=== PATIENT | male | born 1995 | race Caucasian/White ===

== ENCOUNTER 2016-05-10 14:32 | Emergency (ER) | payer MEDICAID, OTHER ==
[~2016-05-10] VITALS: Ht 165.1 cm; Wt 81.0 kg
[~2016-05-10 14:32] MED LIST: ACET500C5 PO; AZIT250T94 PO; GUAI118L94 PO; IBUP-1542 PO; SODI44SP11 NS
[2016-05-10 14:51] VITALS: Ht 165.1 cm; Wt 81.0 kg
--- NOTE | 2016-05-10 15:34 | ERD ---
ER Documentation Chief Complaint Date/Time DATE: 05/10/16 TIME: 15:30 Chief Complaint COUGH & SORE THROAT X3 WEEKS HPI This 20-year-old male who presents to the emergency department today complaining of cough and sore throat for the past 3 weeks. Patient has not tried any [id number]-gcxyftj medication. States the cough is worse at night. Denies any fevers or chills. ROS All systems reviewed and are negative except as per history of present illness. Medications Home Meds Active Scripts Acetaminophen* (Tylophen*) 500 Mg Capsule, 1 CAP PO Q6H Y for PAIN AND OR ELEVATED TEMP, #20 CAP Prov:JHOAN LOPEZ PA-C 03/06/16 Ibuprofen* (Motrin*) 600 Mg Tab, 600 MG PO Q6, #30 TAB Prov:JHOAN LOPEZ PA-C 03/06/16 Azithromycin* (Zithromax*) 250 Mg Tablet, 250 MG PO .ZPACK DIRECTED, #6 TAB TAKE 500 MG (2 TABS) THE FIRST DAY THEN 250 MG (1 TAB) DAYS 2-5 Prov:JHOAN LOPEZ PA-C 03/06/16 Guaifenesin-Codeine Phosphate* (Guaifenesin* with Codeine Liq) 120 Ml Liquid, 5 ML PO Q4H for COUGH, #120 ML Prov:CHAYO DEAL NP 03/25/15 Sodium Chloride (Saline Nasal [place]) 45 Ml [place], 2 SPRAY NS Q2H, #1 BOT Prov:CHAYO DEAL NP 03/25/15 Allergies Allergies: Coded Allergies: Penicillins (Verified Allergy, Mild, RASH, 05/13/13) PMhx/Soc History of Surgery: No Anesthesia Reaction: No Hx Neurological Disorder: No Hx Respiratory Disorders: No Hx Cardiac Disorders: No Hx Psychiatric Problems: No Hx Miscellaneous Medical Probl: No Hx Alcohol Use: No Hx Substance Use: No Hx Tobacco Use: No Physical Exam Vitals Vital Signs Date Time Temp Pulse Resp B/P Pulse Ox O2 Delivery O2 Flow Rate FiO2 05/10/16 14:51 97.7 79 18 154/82 100 Physical Exam Const: No acute distress Head: Atraumatic Eyes: Normal Conjunctiva ENT: Ears TMs normal. Nose no drainage. Throat no erythema no exudate. Neck: Full range of motion..~ No meningismus. Resp: Clear to auscultation bilaterally. No Absent breath sounds. No wheezing. Cardio: Regular rate and rhythm, no murmurs Abd: Soft, non tender, non distended. Normal bowel sounds Skin: No petechiae or rashes Neur: Awake and alert Psych: Normal Mood and Affect Procedures/MDM This is a 20-year-old male who presents to the emergency department today complaining of cough and sore throat for the past 3 weeks. Patient's physical exam is benign and symptoms are consistent with URI versus allergic rhinitis. I have low suspicion for strep pharyngitis, peritonsillar abscess, retropharyngeal abscess, otitis media, PNA, sinusitis, abscess, meningitis, sepsis, or other acute infectious bacterial process. Patient is afebrile and otherwise well appearing. Patient has not tried any over -the-counter medications and was therefore instructed to try over the counter medications first. He is given a prescription for Zyrtec, Motrin, Tylenol and Robitussin. His blood pressure was mildly elevated and he was instructed to follow up with his primary care physician I was suspicion for hypertensive emergency At this time the patient is stable for discharge and outpatient management. They should follow up with their PCP in the next 1-2. They may return to the emergency department sooner if symptoms persist or worsen. Patient understood and agreed with the plan. Departure Diagnosis: Primary Impression: URI (upper respiratory infection) URI type: unspecified URI Qualified Code: J06.9 - Upper respiratory tract infection, unspecified type Condition: ZACKARY Melara PA-C May 10, 2016 15:34
== END 2016-05-10 15:41 | disposition home or self-care (01) ==
LOC: FTE 14:32
DX: J06.9 Acute upper respiratory infection, unspecified (principal)
CPT/HCPCS: 99282

== ENCOUNTER 2016-05-17 19:45 | Emergency (ER) | payer OTHER ==
[~2016-05-17] VITALS: Ht 167.6 cm; Wt 79.0 kg
[2016-05-17 20:15] VITALS: Ht 167.6 cm; Wt 79.0 kg
[2016-05-17] MEDS ORDERED: SOD CHLORIDE 0.9% 1,000 ML IV STA (20:46)
[2016-05-17] MEDS ORDERED: LORAZEPAM 2 MG INJ IV ONE (21:00)
--- NOTE | 2016-05-17 21:18 | RADRPT ---
PROCEDURE: XR Chest AP portable CLINICAL INDICATION: Dizziness TECHNIQUE: An AP portable radiograph of the chest was submitted. COMPARISON: 05/13/2013 FINDINGS: Support Hardware: None Cardiovascular: The cardiovascular silhouette appears unremarkable. Lung King: The lung king appear clear with no nodule, alveolar infiltrate, for a interstitial pr ominence evident. Pleural Spaces: No pneumothorax or pleural effusion is identified. Osseous Structures: The osseous structures appear intact. Soft Tissues: The soft tissues appear unremarkable. IMPRESSION: Stable and unremarkable portable chest. Physician Jaida Date Time Electronically viewed and signed by Artur Rosario Physician on 05/17/2016 21:17 /
[2016-05-17 21:23] LABS: ALBUMIN 5.2 g/dl (3.3-4.9)
[2016-05-17 21:24] LABS: POTASSIUM 4.2 mmol/L (3.5-5.1)
[2016-05-17 21:26] LABS: ALBUMIN/GLOBULIN RATIO 1.44; BILIRUBIN,INDIRECT 0.4 mg/dl (0-1.1); BILIRUBIN,TOTAL 0.4 mg/dl (0.2-1.3); CREATININE 0.79 mg/dl (0.61-1.24); TOTAL PROTEIN 8.8 g/dl (6.1-8.1)
[2016-05-17 21:27] LABS: CALCIUM 9.7 mg/dl (8.4-10.2)
[2016-05-17 21:30] LABS: BASOPHILS % 0.5 % (0.0-2.0); EOSINOPHILS % 0.4 % (0.0-7.0); HEMATOCRIT 46.2 % (42.0-52.0); HEMOGLOBIN 16.3 g/dl (14.0-18.0); LYMPHOCYTES % 21.2 % (15.0-51.0); MEAN CORPUSCULAR HEMOGLOBIN 29.3 pg (29.0-33.0); MEAN CORPUSCULAR HGB CONC 35.2 g/dl (32.0-37.0); MEAN CORPUSCULAR VOLUME 83.3 fl (82.0-101.0); MEAN PLATELET VOLUME 9.3 fl (7.4-10.4); MONOCYTE # 0.6 10^3/ul (0.3-0.9); MONOCYTES % 6.2 % (0.0-11.0); NEUTROPHIL # 6.7 10^3/ul (1.6-7.5); NEUTROPHILS % 71.7 % (39.0-77.0); PLATELET COUNT 217 10^3/UL (140-440); RED BLOOD COUNT 5.54 10^6/ul (4.70-6.10); RED CELL DISTRIBUTION WIDTH 13.7 % (11.5-14.5); UNCORRECTED WBC 9.4 10^3/ul (4.8-10.8); WHITE BLOOD COUNT 9.4 10^3/ul (4.8-10.8)
[2016-05-17 21:38] LABS: CONDITION 1
[2016-05-17 23:19] VITALS: BP 132/85
[2016-05-17] MEDS ORDERED: LORA-441 PO (23:40)
--- NOTE | 2016-05-18 00:32 | ERD ---
ER Documentation Chief Complaint Date/Time DATE: 05/18/16 TIME: 00:23 Chief Complaint dizziness, palpitations HPI 20 year old male with no significant past medical history presents to the ED complaining of dizziness, weakness, palpations that started earlier today. Reports that the headache feels achy and has not taken any medications. Denies dizziness being positional. States that he is slightly anxious. Denies any fever , neck stiffness, chills, chest pain, SOB, wheezing, cough, rhinorrhea, headache , abdominal pain, eye pain, blurred vision. ROS All systems reviewed and are negative except as per history of present illness. Medications Home Meds Active Scripts Acetaminophen* (Tylophen*) 500 Mg Capsule, 1 CAP PO Q6H Y for PAIN AND OR ELEVATED TEMP, #20 CAP Prov:JHOAN LOPEZ PA-C 03/06/16 Ibuprofen* (Motrin*) 600 Mg Tab, 600 MG PO Q6, #30 TAB Prov:JHOAN LOPEZ PA-C 03/06/16 Azithromycin* (Zithromax*) 250 Mg Tablet, 250 MG PO .ZPACK DIRECTED, #6 TAB TAKE 500 MG (2 TABS) THE FIRST DAY THEN 250 MG (1 TAB) DAYS 2-5 Prov:JHOAN LOPEZ PA-C 03/06/16 Guaifenesin-Codeine Phosphate* (Guaifenesin* with Codeine Liq) 120 Ml Liquid, 5 ML PO Q4H for COUGH, #120 ML Prov:CHAYO DEAL NP 03/25/15 Sodium Chloride (Saline Nasal [place]) 45 Ml [place], 2 SPRAY NS Q2H, #1 BOT Prov:CHAYO DEAL NP 03/25/15 Allergies Allergies: Coded Allergies: Penicillins (Verified Allergy, Mild, RASH, 05/13/13) PMhx/Soc Medical and Surgical Hx: pt denies Medical Hx, pt denies Surgical Hx History of Surgery: No Anesthesia Reaction: No Hx Neurological Disorder: No Hx Respiratory Disorders: No Hx Cardiac Disorders: No Hx Psychiatric Problems: No Hx Miscellaneous Medical Probl: No Hx Alcohol Use: No Hx Substance Use: No Hx Tobacco Use: No Physical Exam Vitals Vital Signs Date Time Temp Pulse Resp B/P Pulse Ox O2 Delivery O2 Flow Rate FiO2 05/17/16 23:19 132/85 05/17/16 20:15 98.1 78 18 175/107 99 Physical Exam Const: [id number]-abqkdsiuk, well-nourished. In no acute distress. Head: Atraumatic, normocephalic Eyes: Normal Conjunctiva without injection. No purulent discharge. PERRLA. EOMI ENT: Normal external ear. Ear canal without erythema. Tympanic membrane pearly artis without effusion or bulging. Nasal canal clear with normal turbinates. Moist oropharynx without tonsillar exudates. Non-erythematous pharynx. Uvula midline. No drooling. No trismus. Neck: No cervical midline tenderness. Full range of motion. No meningismus. No cervical lymphadenopathy. No JVD. Resp: Clear to auscultation bilaterally. No wheezing, rhonchi, rales, or crackles. No accessory muscle use. No retractions. Cardio: Regular rate and rhythm. No murmurs, rubs or gallops. Abd: Soft, non tender, non distended. Normal bowel sounds. No palpable masses. No rebound tenderness. No guarding. Negative McBurney's Point. Negative Ventura's Sign. Skin: Normal skin turgor. No petechiae or rashes Back: No midline tenderness. No CVA tenderness. Ext: No cyanosis, or edema. Distal pulses intact bilaterally. Neur: Awake and alert. Normal gait. Normal coordination. Cranial Nerves II- VII intact. Normal finger to nose. Muscle strength 5/5. Sensation intact. Psych: Normal Mood and Affect Result Diagram: 05/17/16 2100 05/17/16 2100 Results 24 hrs Laboratory Tests Test 05/17/16 21:00 Alanine Aminotransferase (ALT/SGPT) 45IU/L Albumin 5.2g/dl Albumin/Globulin Ratio 1.44 Alkaline Phosphatase 71IU/L Anion Gap 19 Aspartate Amino Transf (AST/SGOT) 34IU/L Basophils # 0.010^3/ul Basophils % 0.5% Blood Urea Nitrogen 13mg/dl Calcium Level 9.7mg/dl Carbon Dioxide Level 29mmol/L Chloride Level 101mmol/L Creatinine 0.79mg/dl Direct Bilirubin 0.00mg/dl Eosinophils # 0.010^3/ul Eosinophils % 0.4% Globulin 3.60g/dl Glucose Level 86mg/dl Hematocrit 46.2% Hemoglobin 16.3g/dl Indirect Bilirubin 0.4mg/dl Lipase 71U/L Lymphocytes # 2.010^3/ul Lymphocytes % 21.2% Magnesium Level 2.0mg/dl Mean Corpuscular Hemoglobin 29.3pg Mean Corpuscular Hemoglobin Concent 35.2g/dl Mean Corpuscular Volume 83.3fl Mean Platelet Volume 9.3fl Monocytes # 0.610^3/ul Monocytes % 6.2% Neutrophils # 6.710^3/ul Neutrophils % 71.7% Nucleated Red Blood Cells # 0.010^3/ul Nucleated Red Blood Cells % 0.0/100WBC Platelet Count 82940^3/UL Potassium Level 4.2mmol/L Red Blood Count 5.5410^6/ul Red Cell Distribution Width 13.7% Sodium Level 145mmol/L Total Bilirubin 0.4mg/dl Total Protein 8.8g/dl Troponin I < 0.010ng/ml White Blood Count 9.410^3/ul Current Medications Medications (Trade) Dose Ordered Sig/Fantasma Route PRN Reason Start Time Stop Time Status Last Admin Dose Admin Sodium Chloride (NS) 1,000 ml @ 1,000 mls/hr Q1H STAT IV 05/17/16 20:46 05/17/16 21:45 DC 05/17/16 20:57 Lorazepam (Ativan) 1 mg ONCE ONCE IV 05/17/16 21:00 05/17/16 21:01 DC 05/17/16 20:57 Procedures/MDM 20 year old male with no significant past medical history presents to the ED complaining of dizziness, weakness, and palpitations. Patient is afebrile and nontoxic-appearing. Patient's blood pressure was noted to be 175/107. Patient' s blood pressure was elevated (>120/80) but appears stable without evidence of hypertension emergency or urgency. The patient was counseled about the risks of hypertension and urged to pursue outpatient monitoring and therapy within a week with their primary care physician. Low suspicion for end organ damage. Recheck of blood pressure was noted to be 132/85. Patient is treated with 1 L normal saline with improvement of her symptoms. Patient verbalized that he feels better. This case was discussed with my supervising physician, Dr. Pineda. CBC: No leukocytosis. No e/o of systemic infection. No e/o anemia. CMP: No e/o severe acidosis, alkalosis, renal failure, diabetic ketoacidosis, liver disease Lipase within normal limits. Urine: No leukocyte esterase, no nitrites, no hematuria. Troponin < 0.01 Magnesium within normal limits EKG reviewed and interpreted by Dr. Shah Rate/Rhythm: [87 bpm, Normal Sinus Rhythm] No ectopy, no ST elevations, no prolong QT, normal axis. QRS, ST, T-waves: [No changes consistent w/ acute ischemia] Impression: [No evidence of ischemia or arrhythmia] PROCEDURE: XR Chest AP portable CLINICAL INDICATION: Dizziness TECHNIQUE: An AP portable radiograph of the chest was submitted. COMPARISON: 05/13/2013 FINDINGS: Support Hardware: None Cardiovascular: The cardiovascular silhouette appears unremarkable. Lung Díaz: The lung díaz appear clear with no nodule, alveolar infiltrate, for a interstitial prominence evident. Pleural Spaces: No pneumothorax or pleural effusion is identified. Osseous Structures: The osseous structures appear intact. Soft Tissues: The soft tissues appear unremarkable. IMPRESSION: Stable and unremarkable portable chest. Low suspicion for acute myocardial infarction, pneumothorax, pneumonia, Brugada Syndrome, WPW, cardiac tamponade, pulmonary embolism, AAA, aortic dissection, Boerhaave's syndrome, cardiac dysrhythmias,meningitis, intracranial bleed, seizure, subarachnoid hemorrhage, anemia, hypoglycemia, stroke, TIA or other emergent conditions. Follow up with primary care physician in 1-2 days. Instructed patient to return to the ED sooner for any worsening symptoms. Patient's questions were answered. Patient understood and agreed with discharge plan. Patient discharged stable. Departure Diagnosis: Primary Impression: Palpitations Additional Impression: Dizziness Condition: Stable Patient Instructions: Anxiety Reaction, Dizziness, Unk Cause, Palpitations Referrals: COUNTS INCLUDE 234 BEDS AT THE [facility] YOU HAVE RECEIVED A MEDICAL SCREENING EXAM AND THE RESULTS INDICATE THAT YOU DO NOT HAVE A CONDITION THAT REQUIRES URGENT TREATMENT IN THE EMERGENCY DEPARTMENT. FURTHER EVALUATION AND TREATMENT OF YOUR CONDITION CAN WAIT UNTIL YOU ARE SEEN IN YOUR DOCTORS OFFICE WITHIN THE NEXT 1-2 DAYS. IT IS YOUR RESPONSIBILITY TO MAKE AN APPOINTMENT FOR FOLOW-UP CARE. IF YOU HAVE A PRIMARY DOCTOR --you should call your primary doctor and schedule an appointment IF YOU DO NOT HAVE A PRIMARY DOCTOR YOU CAN CALL OUR PHYSICIAN REFERRAL HOTLINE AT IF YOU CAN NOT AFFORD TO SEE A PHYSICIAN YOU CAN CHOSE FROM THE FOLLOWING COMMUNITY CLINICS [facility] [address] [place] [facility] [address] [facility] [address] [facility] [address] [facility] [address] [facility]. [facility]. [address] [facility]. [facility] YOU HAVE RECEIVED A MEDICAL SCREENING EXAM AND THE RESULTS INDICATE THAT YOU DO NOT HAVE A CONDITION THAT REQUIRES URGENT TREATMENT IN THE EMERGENCY DEPARTMENT. FURTHER EVALUATION AND TREATMENT OF YOUR CONDITION CAN WAIT UNTIL YOU ARE SEEN IN YOUR DOCTORS OFFICE WITHIN THE NEXT 1-2 DAYS. IT IS YOUR RESPONSIBILITY TO MAKE AN APPOINTMENT FOR FOLOW-UP CARE. IF YOU HAVE A PRIMARY DOCTOR --you should call your primary doctor and schedule and appointment IF YOU DO NOT HAVE A PRIMARY DOCTOR YOU CAN CALL OUR PHYSICIAN REFERRAL HOTLINE AT . IF YOU CAN NOT AFFORD TO SEE A PHYSICIAN YOU CAN CHOSE FROM THE FOLLOWING [facility] INSTITUTIONS: [facility] [address] [place] [address] [facility] [address] [place] [address] [facility] [address] [place] [address] [facility] URGENT CARE/SPECIALTIES Additional Instructions: FOLLOW UP WITH YOUR PRIMARY CARE PHYSICIAN TOMORROW.Return to this facility if you are not improving as expected. SHIRA POOLE PA-C May 18, 2016 00:32
== END 2016-05-17 23:57 | disposition home or self-care (01) ==
LOC: FTE 19:45
DX: R00.2 Palpitations (principal)
CPT/HCPCS: 36415; 71010; 80053; 83690; 83735; 84484; 85025; 93005; 96374; J2060; J7030; Z7502

== ENCOUNTER 2016-05-31 14:06 | Emergency (ER) | payer OTHER ==
[~2016-05-31] VITALS: Wt 77.0 kg
[2016-05-31] MEDS ORDERED: FLUORESCEIN STRIP LEFT EYE ONE (14:30)
[2016-05-31] MEDS ORDERED: NAPR-688 PO (14:39)
[2016-05-31] MEDS ORDERED: HYDR-906 PO (14:39)
[2016-05-31] MEDS ORDERED: POLY10DR BOTH EYES (14:39)
--- NOTE | 2016-05-31 14:48 | ERD ---
ER Documentation Chief Complaint Date/Time DATE: 05/31/16 TIME: 14:45 Chief Complaint LEFT EYE REDNESS X 1 DAY HPI This 20-year-old male presents with left eye redness for 1 day. He woke up and had slight crusting and is both painful and itchy on the surfaces I. He has no visual deficits. He cannot remember any reason where he would have gotten a foreign body in his eye. ROS All systems reviewed and are negative except as per history of present illness. Medications Home Meds Active Scripts Naproxen* (Naproxen*) 500 Mg Tablet, 500 MG PO BID Y for PAIN, #20 TAB Prov:CONNIEHARRY DO 05/31/16 Hydrocodone/Acetaminophen ([place] 5-325 Tablet) 1 Each Tablet, 1 EACH PO Q6, #7 TAB Prov:CONNIEHARRY DO 05/31/16 Polymyxin/Trimethoprim* (Polytrim* Eye Drops) 10 Ml Drops, 1 DROP BOTH EYES Q3H , #10 EA Prov:HARRY ROSALES DO 05/31/16 Acetaminophen* (Tylophen*) 500 Mg Capsule, 1 CAP PO Q6H Y for PAIN AND OR ELEVATED TEMP, #20 CAP Prov:JHOAN LOPEZ PA-C 03/06/16 Ibuprofen* (Motrin*) 600 Mg Tab, 600 MG PO Q6, #30 TAB Prov:JHOAN LOPEZ PA-C 03/06/16 Azithromycin* (Zithromax*) 250 Mg Tablet, 250 MG PO .ZPACK DIRECTED, #6 TAB TAKE 500 MG (2 TABS) THE FIRST DAY THEN 250 MG (1 TAB) DAYS 2-5 Prov:JHOAN LOPEZ PA-C 03/06/16 Guaifenesin-Codeine Phosphate* (Guaifenesin* with Codeine Liq) 120 Ml Liquid, 5 ML PO Q4H for COUGH, #120 ML Prov:CHAYO DEAL NP 03/25/15 Sodium Chloride (Saline Nasal [place]) 45 Ml [place], 2 SPRAY NS Q2H, #1 BOT Prov:CHAYO DEAL NP 03/25/15 Allergies Allergies: Coded Allergies: Penicillins (Verified Allergy, Mild, RASH, 05/13/13) PMhx/Soc History of Surgery: No Anesthesia Reaction: No Hx Neurological Disorder: No Hx Respiratory Disorders: No Hx Cardiac Disorders: No Hx Psychiatric Problems: No Hx Miscellaneous Medical Probl: No Hx Alcohol Use: No Hx Substance Use: No Hx Tobacco Use: No Physical Exam Vitals Vital Signs Date Time Temp Pulse Resp B/P Pulse Ox O2 Delivery O2 Flow Rate FiO2 05/31/16 14:10 98.0 78 18 119/69 99 Physical Exam Const: [] No distress Head: Atraumatic Eyes: Erythematous conjunctival injection of the left eye with hayley-limbic sparing, EOMI, PERRLA, tiny uptake of floor seen on the margin of the 10 o' clock position of the junction of the cornea and iris. No other fluorescein uptake, no foreign bodies visualized. Funduscopic exam within normal limits. Right eye also has mild conjunctival injection. ENT: Normal External Ears, Nose and Mouth. Results 24 hrs Current Medications Medications (Trade) Dose Ordered Sig/Fantasma Route PRN Reason Start Time Stop Time Status Last Admin Dose Admin Fluorescein Sodium (Cjaat-W-Qzrpb) 1 strip ONCE ONCE LEFT EYE 05/31/16 14:30 05/31/16 14:31 DC Procedures/MDM Likely conjunctivitis although there is a small area of fluorescein uptake which may be a corneal abrasion. Because of the now bilateral symptoms I believe is much more likely conjunctivitis. Discharging with Polytrim antibiotic eyedrops as well as 7 [place] tabs and 20 naproxen for pain. Also discharge with primary care follow-up with instructions to obtain ophthalmologic referral. Departure Diagnosis: Primary Impression: Conjunctivitis Additional Impression: Corneal abrasion, left Condition: Stable Patient Instructions: Conjunctivitis, Bacterial, Corneal Abrasion Additional Instructions: Call your primary care doctor TOMORROW for an appointment during the next 2-3 days. Obtain a referral for an opthomologist if not improving. See the doctor sooner or return here if your condition worsens before your appointment time. HARRY ROSALES DO May 31, 2016 14:48
== END 2016-05-31 14:48 | disposition home or self-care (01) ==
LOC: FTE 14:06
DX: S05.02XA Injury of conjunctiva and corneal abrasion without foreign body, left eye, initial encounter (principal); H10.9 Unspecified conjunctivitis; X58.XXXA Exposure to other specified factors, initial encounter; Y92.9 Unspecified place or not applicable
CPT/HCPCS: 99283

== ENCOUNTER 2016-06-11 20:17 | Emergency (ER) | payer OTHER ==
[~2016-06-11] VITALS: Ht 167.6 cm; Wt 78.0 kg
[~2016-06-11 20:17] MED LIST changes: +HYDR-906 PO; +NAPR-688 PO; +POLY10DR BOTH EYES
[2016-06-11 20:20] VITALS: Ht 167.6 cm; Wt 78.0 kg
[2016-06-11] MEDS ORDERED: ALPR0.5T PO (21:20)
[2016-06-11] MEDS ORDERED: LORAZEPAM 0.5 MG TAB PO ONE (21:30)
--- NOTE | 2016-06-11 21:34 | RADRPT ---
PROCEDURE: XR Chest. CLINICAL INDICATION: Cough. Clinical concern for infiltrate TECHNIQUE: Portable AP semi erect view of the chest was obtained. COMPARISON: 05/17/2016 FINDINGS: The cardiomediastinal silhouette is within normal limits. The lungs are clear. There is no evidenc e for pleural effusion, pneumothorax or pulmonary vascular congestion. The osseous structures are i ntact with no evidence for acute abnormality. RPTAT:HJJR IMPRESSION: No evidence for acute intrathoracic pathology or interval change from 05/17/2016. Physician Kat Date Time Electronically viewed and signed by Physician Kat on 06/11/2016 21:34 JR/
[2016-06-11 22:08] VITALS: BP 148/89; PULSE 87; RESP 20; TEMP 98.4
--- NOTE | 2016-06-11 22:13 | ERD ---
ER Documentation Chief Complaint Date/Time DATE: 06/11/16 TIME: 22:09 Chief Complaint chest pain/anxiety on and off x 3 weeks HPI 20-year-old man presents with sharp nonexertional nonradiating chest pain and palpitations intermittently 3 weeks. He has had multiple similar episodes in the past and workup has been unremarkable, his PMD scheduled a cardiology appointment for June 18. He states his symptoms today were similar previous episodes, he admits to feeling anxious, denies suicidal homicidal ideation, no cough, no fevers or chills, no vomiting or diarrhea, no recent weight loss. ROS All systems reviewed and are negative except as per history of present illness. Medications Home Meds Active Scripts Alprazolam* (Xanax*) 0.5 Mg Tab, 0.5 MG PO Q8H Y for ANXIETY, #15 TAB Prov:ASHLEY TAI MD 06/11/16 Naproxen* (Naproxen*) 500 Mg Tablet, 500 MG PO BID Y for PAIN, #20 TAB Prov:HARRY ROSALES DO 05/31/16 Hydrocodone/Acetaminophen ([place] 5-325 Tablet) 1 Each Tablet, 1 EACH PO Q6, #7 TAB Prov:HARRY ROSALES DO 05/31/16 Polymyxin/Trimethoprim* (Polytrim* Eye Drops) 10 Ml Drops, 1 DROP BOTH EYES Q3H , #10 EA Prov:HARRY ROSALES DO 05/31/16 Acetaminophen* (Tylophen*) 500 Mg Capsule, 1 CAP PO Q6H Y for PAIN AND OR ELEVATED TEMP, #20 CAP Prov:JHOAN LOPEZ PA-C 03/06/16 Ibuprofen* (Motrin*) 600 Mg Tab, 600 MG PO Q6, #30 TAB Prov:JHOAN LOPEZ PA-C 03/06/16 Azithromycin* (Zithromax*) 250 Mg Tablet, 250 MG PO .TIM DIRECTED, #6 TAB TAKE 500 MG (2 TABS) THE FIRST DAY THEN 250 MG (1 TAB) DAYS 2-5 Prov:JHOAN LOPEZ PA-C 03/06/16 Guaifenesin-Codeine Phosphate* (Guaifenesin* with Codeine Liq) 120 Ml Liquid, 5 ML PO Q4H for COUGH, #120 ML Prov:CHAYO DEAL. [employer]UTTER APPRENTICE 03/25/15 Sodium Chloride (Saline Nasal [place]) 45 Ml [place], 2 SPRAY NS Q2H, #1 BOT Prov:CHAYO DEAL. [employer] CUTTER APPRENTICE 03/25/15 Allergies Allergies: Coded Allergies: Penicillins (Verified Allergy, Mild, RASH, 06/11/16) PMhx/Soc Anxiety, recurrent chest pain, possibly hypertension History of Surgery: No Anesthesia Reaction: No Hx Neurological Disorder: No Hx Respiratory Disorders: No Hx Cardiac Disorders: No Hx Psychiatric Problems: No Hx Miscellaneous Medical Probl: No Hx Alcohol Use: No Hx Substance Use: No Hx Tobacco Use: No FmHx Family History: No diabetes Physical Exam Vitals Vital Signs Date Time Temp Pulse Resp B/P Pulse Ox O2 Delivery O2 Flow Rate FiO2 06/11/16 22:08 98.4 87 20 148/89 100 Room Air 06/11/16 20:20 98.4 92 20 100 Physical Exam GENERAL: Well-developed, well-nourished, well-hydrated, appears anxious HEENT: Moist mucous membranes, pink conjunctiva, no cervical spine tenderness or step-off deformities, no goiter, no jaundice or icterus, extraocular movements intact without pain. No submandibular induration, and no pharyngeal erythema NEURO: Alert and oriented 3, cranial nerves II through XII intact bilaterally, pupils equal round reactive to light, no focal deficits or facial asymmetry, sensation intact distally Strength 5/5 in upper and lower extremities bilaterally CARDIAC: Regular rate and rhythm, no murmurs rubs or gallops LUNGS: Clear bilaterally no wheezing crackles or stridor ABDOMEN: Soft nontender, no guarding, no rigidity, no rebound, no psoas sign no obturator sign. Normoactive bowel sounds SKIN: Warm and dry to touch, no abrasions, contusions, or hematomas, no lacerations, no ecchymosis, no target lesions, and without ulcers EXTREMITIES: No clubbing cyanosis or edema, calves are bilaterally symmetrical, no Homans sign, no popliteal cord sign. Distal pulses equal and bilateral PSYCH: Anxious Results 24 hrs Current Medications Medications (Trade) Dose Ordered Sig/Fantasma Route PRN Reason Start Time Stop Time Status Last Admin Dose Admin Lorazepam (Ativan) 0.5 mg ONCE ONCE PO 06/11/16 21:30 06/11/16 21:31 DC 06/11/16 21:21 Procedures/[facility] I administered alprazolam 0.5 mg p.o. for his symptoms. EKG performed, read by me: 80 bpm, normal sinus rhythm, normal axis, no acute ST segment changes, narrow QRS complex, with good R-wave progression in precordial leads. One AP view of the chest performed, read by me reveals no acute infiltrates, normal mediastinum, sharp costophrenic and cardiac borders, no air under the diaphragm. Otherwise unremarkable chest x-ray. Patient was hypertensive here in the emergency department and he and his PMD are suspicious for hypertension although he has a cardiology appointment scheduled for later this week and I will defer outpatient hypertension management to his digital artist. He has had multiple similar episodes of chest pain and I do not suspect an acute cardiac event at this time. Differential diagnoses considered, included but not limited to acute coronary syndrome, pulmonary embolism, aortic dissection, abdominal aortic aneurysm, sepsis, stroke, meningitis, encephalitis, pneumonia, appendicitis, cholecystitis , bowel obstruction, pyelonephritis, nephrolithiasis, cystitis, as well as metabolic, hematologic, and electrolyte abnormalities. As well as abscess, cellulitis, fractures, and dislocations. Patient feels much better at this time, and vital signs are normal, symptoms have improved. I did give strict instructions to return to the ED if symptoms continue or worsen, patient will otherwise follow-up with primary care physician. Patient understood instructions and agreed to plan. Departure Diagnosis: Primary Impression: Palpitations Additional Impressions: Chest pain Chest pain type: unspecified Qualified Code: R07.9 - Chest pain, unspecified type Hypertension Hypertension type: essential hypertension Qualified Code: I10 - Essential hypertension Anxiety Condition: Good Patient Instructions: Anxiety Reaction, Palpitations ASHLEY TAI MD Jun 11, 2016 22:13
== END 2016-06-11 22:10 | disposition home or self-care (01) ==
LOC: FTE 20:17
DX: R00.2 Palpitations (principal); I10 Essential (primary) hypertension; F41.9 Anxiety disorder, unspecified
CPT/HCPCS: 71010; 93005; Z7610

== ENCOUNTER 2016-08-28 14:11 | Emergency (ER) | payer OTHER ==
[~2016-08-28] VITALS: Wt 80.5 kg
[~2016-08-28 14:11] MED LIST changes: +ALPR0.5T PO
[2016-08-28] MEDS ORDERED: AZIT250T94 PO (14:34)
[2016-08-28] MEDS ORDERED: D-ME473S18 PO (14:34)
[2016-08-28] MEDS ORDERED: PSEU120T51 PO (14:35)
--- NOTE | 2016-08-28 14:45 | ERD ---
ER Documentation Chief Complaint Date/Time DATE: 08/28/16 TIME: 14:41 Chief Complaint BILATERAL EAR PAIN X 1 WEEK HPI This is a 20-year-old male presents to the ER for cough, sore throat, bilateral ear pain and pressure for the last week. Patient denies any fevers or chills. He denies any chest pain or shortness of breath. Cough is dry and constant, it is worse at night. There are no sick contacts at home. Patient has not tried anything for his ear pain. Patient has a past medical history of anxiety and is currently taking Paraxotine, which was prescribed by his PCP for palpitations. ROS 12 point review of systems was done, all negative except per HPI. Medications Home Meds Active Scripts Pseudoephedrine Hcl (Sudafed 12 Hour) 120 Mg Tablet.sa, 120 MG PO Q12 for 3 Days Prov:CHRISTINA DEL ANGEL 08/28/16 Dextromethorphan Hb-Promethazine Hcl (Promethazine DM Syrup) 473 Ml Syrup, 10 ML PO Q6H Y for COUGH, #4 OZ Prov:CHRISTINA DEL ANGEL 08/28/16 Azithromycin* (Zithromax*) 250 Mg Tablet, 250 MG PO .ZPACK DIRECTED, #6 TAB TAKE 500 MG (2 TABS) THE FIRST DAY THEN 250 MG (1 TAB) DAYS 2-5 Prov:CHRISTINA DEL ANGEL 08/28/16 Alprazolam* (Xanax*) 0.5 Mg Tab, 0.5 MG PO Q8H Y for ANXIETY, #15 TAB Prov:ASHLEY TAI MD 06/11/16 Naproxen* (Naproxen*) 500 Mg Tablet, 500 MG PO BID Y for PAIN, #20 TAB Prov:HARRY ROSALES DO 05/31/16 Hydrocodone/Acetaminophen ([place] 5-325 Tablet) 1 Each Tablet, 1 EACH PO Q6, #7 TAB Prov:HARRY ROSALES DO 05/31/16 Polymyxin/Trimethoprim* (Polytrim* Eye Drops) 10 Ml Drops, 1 DROP BOTH EYES Q3H , #10 EA Prov:HARRY ROSALES DO 05/31/16 Acetaminophen* (Tylophen*) 500 Mg Capsule, 1 CAP PO Q6H Y for PAIN AND OR ELEVATED TEMP, #20 CAP Prov:JHOAN LOPEZ PA-C 03/06/16 Ibuprofen* (Motrin*) 600 Mg Tab, 600 MG PO Q6, #30 TAB Prov:JHOAN LOPEZ PA-C 03/06/16 Azithromycin* (Zithromax*) 250 Mg Tablet, 250 MG PO .ZPACK DIRECTED, #6 TAB TAKE 500 MG (2 TABS) THE FIRST DAY THEN 250 MG (1 TAB) DAYS 2-5 Prov:JHOAN LOPEZ PA-C 03/06/16 Guaifenesin-Codeine Phosphate* (Guaifenesin* with Codeine Liq) 120 Ml Liquid, 5 ML PO Q4H for COUGH, #120 ML Prov:CHAYO DEAL NP 03/25/15 Sodium Chloride (Saline Nasal [place]) 45 Ml [place], 2 SPRAY NS Q2H, #1 BOT Prov:CHAYO DEAL NP 03/25/15 Allergies Allergies: Coded Allergies: Penicillins (Verified Allergy, Mild, RASH, 06/11/16) PMhx/Soc History of Surgery: No Anesthesia Reaction: No Hx Neurological Disorder: No Hx Respiratory Disorders: No Hx Cardiac Disorders: No Hx Psychiatric Problems: No Hx Miscellaneous Medical Probl: No Hx Alcohol Use: No Hx Substance Use: No Hx Tobacco Use: No Physical Exam Vitals Vital Signs Date Time Temp Pulse Resp B/P Pulse Ox O2 Delivery O2 Flow Rate FiO2 08/28/16 14:22 99.9 118 18 162/78 99 Physical Exam GENERAL: The patient is well-developed, well-nourished, in no acute distress. NECK: Cervical spine is non tender with no step off. Supple, no nuchal rigidity HEENT: Atraumatic. Pupils equal, round and reactive to light. Extraocular muscles are grossly intact. Conjunctivae pink, no discharge. Bilateral tympanic membranes are clear with no evidence of erythema, effusion or dulling of the light reflex. Tonsilar erythema with no exudates or uvular deviation. Clear rhinorrhea. RESPIRATORY: Clear to auscultation bilaterally. There are no rales, wheezes or rhonchi. HEART: Regular rate and rhythm. No murmurs, clicks, rubs or gallops. EXTREMITIES: No clubbing or cyanosis. Full range of motion. Grossly neurovascularly intact. NEUROLOGIC: Alert and oriented. Cranial nerves II through XII are intact. SKIN: There is no rash. The skin is warm and dry. Procedures/MDM Differential diagnosis includes but is not limited to; Viral URI, allergic rhinitis, bronchitis, pertussis,pneumonia. Patient has had these symptoms for a week now, and has been getting worse. At this time patient will be given a a course of azithromycin. He'll also be given promethazine and Sudafed or other symptoms. Patient was slightly tachycardic, however he does suffer from palpitations and his primary care doctor is following up with him regarding these symptoms. At this time patient has denied any chest pain or shortness of breath, suspicion for pulmonary embolism is low. Clinical suspicion for pneumonia is low as patient appears well, is not hypoxic or in any respiratory distress. Additionally, patients physical examination is benign. Plan was discussed with patient they understand and agree. Patient needs to follow up with PCP in 1-2 days or return to ER sooner if symptoms worsen. Patient's blood pressure was slightly elevated, patient is currently following up with his primary care doctor regarding his elevated blood pressure. At this time patient is asymptomatic he does not have hypertensive urgency or emergency. I extensively discussed the importance of following up regarding his blood pressure. Patient understands and agrees with plan. Departure Diagnosis: Primary Impression: URI (upper respiratory infection) Condition: Stable Patient Instructions: Preventing Common Respiratory Infections Referrals: POLINA VASQUEZ (PCP) Additional Instructions: Call your primary care doctor TOMORROW for an appointment during the next 1-2 days.See the doctor sooner or return here if your condition worsens before your appointment time. CHRISTINA DEL ANGEL Aug 28, 2016 14:45
== END 2016-08-28 14:36 | disposition home or self-care (01) ==
LOC: E/R 14:11
DX: J06.9 Acute upper respiratory infection, unspecified (principal)
CPT/HCPCS: 99284